=== PATIENT | male | born 1960 ===

== ENCOUNTER 2017-08-12 09:31 | Emergency (ER) | payer OTHER ==
[2017-08-12 09:54] VITALS: BP 107/72
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
== END 2017-08-12 11:08 | disposition home or self-care (01) ==
LOC: UCEAST 09:31
DX: J11.1 Influenza due to unidentified influenza virus with other respiratory manifestations (principal)
CPT/HCPCS: 87502; 99212; G0463

== ENCOUNTER 2019-03-27 08:25 | Day surgery (SDC) | payer OTHER ==
[~2019-03-27 08:25] MED LIST: Buffered Lidocaine 1% SYRIN* 1 ML/SYRINGE INTRADERM ONE
[2019-03-27] MEDS ORDERED: Midazolam* 1 MG/ML 2 ML VIAL (2 MG) ONE ×2 (10:06→10:36)
--- NOTE | 2019-03-27 11:31 | OP ---
DATE OF OPERATION: 03/27/2019 [facility] DATE OF : 1960. SURGEON: Robbie Mares M.D. PREOPERATIVE DIAGNOSIS: Cataract left eye. POSTOPERATIVE DIAGNOSIS: Cataract left eye. OPERATIVE PROCEDURE: Extracapsular cataract extraction with intraocular lens implant left eye. DESCRIPTION OF PROCEDURE: The patient was brought to the operating room after being given 1/2% Alcaine with epinephrine drops in the preoperative area. The eye was prepped and draped in the usual sterile fashion. Sterile drape and eyelid speculum were placed. Again, topical 1/2% Alcaine with epinephrine was given. A paracentesis incision was made at the 3 o'clock position with the No.75 blade. Clear cornea incision 2.2 x 2.2-mm was created at the 6 o'clock position starting at the anterior limbus using the 2.2-mm keratome. The anterior chamber was irrigated with 0.4 mL of 1% non-preservative intracameral lidocaine and filled with DisCoVisc. A capsulorrhexis was completed using the cystotome and the Utrata forceps. Hydrodissection was performed with balanced salt solution. The lens nucleus was removed with the Phacoemulsification handpiece without incident. Cortex was removed with the irrigation-aspiration handpiece. The capsular bag was re-inflated using DisCoVisc and an [id number] 13 implant was inserted with the shooter. All measurements confirmed with ORA. Horizontal reference martinez were made with the patient in a seated position in the preoperative area. The irrigation-aspiration handpiece was used to remove all residual DisCoVisc. The eye was refilled with balanced salt solution and the wound checked and found to be watertight. Topical Maxitrol drops were given. [id number]/[facility] #: [id number] MTDD
[2019-03-27 12:08] VITALS: BP 113/70
[2019-03-27] MEDS ORDERED: acetaZOLAMIDE TAB* 250 MG ONE (13:44)
[2019-03-27] MEDS ORDERED: Phenylephrine OPHTH SOL 2.5%* 2 ML ONE (13:44)
[2019-03-27] MEDS ORDERED: Cyclopentolate 1% OPTH.SOL* 2 ML BTL ONE (13:44)
[2019-03-27] MEDS ORDERED: Povidone Iodine 5% OPTH* 30 ML BTL ONE (13:44)
[2019-03-27] MEDS ORDERED: Ketorolac 0.5% OPHTH (NF) 0.5 % 5 ML BTL ONE (13:44)
[2019-03-27] MEDS ORDERED: Proparacaine 0.5% OPHTH.SOL* 15 ML BTL ONE (13:44)
[2019-03-27] MEDS ORDERED: Neomycin/Polymy/Dex OPTH.SUSP* MAXITROL 0.1% 5 ML ONE (13:44)
[2019-03-27] MEDS ORDERED: Lidocaine 2% w/ EPI 1:200,000* 20 ML SDV VIAL ONE (13:44)
[2019-03-27] MEDS ORDERED: Lidocaine 1% MPF ** 5 ML VIAL ONE (13:44)
== END 2019-03-27 11:38 | disposition home or self-care (01) ==
LOC: OREAST 08:25
PROVIDERS: ATTEND Specialist
DX: H25.812 Combined forms of age-related cataract, left eye (principal); J30.2 Other seasonal allergic rhinitis
CPT/HCPCS: A9270-GY; J2250; V2787

== ENCOUNTER 2019-04-03 07:11 | Day surgery (SDC) | payer OTHER ==
[2019-04-03] MEDS ORDERED: Lidocaine 2% PF * 5 ML VIAL ONE (09:20)
[2019-04-03] MEDS ORDERED: Propofol* 10 MG/ML 20 ML BTL ONE (09:20)
[2019-04-03 10:21] VITALS: BP 104/66
--- NOTE | 2019-04-03 11:41 | OP ---
DATE OF OPERATION: 04/03/2019. DATE OF : 1960. SURGEON: Robbie Mares M.D. PREOPERATIVE DIAGNOSIS: Cataract right eye. POSTOPERATIVE DIAGNOSIS: Cataract right eye. OPERATIVE PROCEDURE: Extracapsular cataract extraction with intraocular lens implant right eye. PROCEDURE: The patient was brought to the operating room after being given 1/2% Alcaine with epineph rine drops in the preoperative area. The eye was prepped and draped in the usual sterile fashion. S terile drape and eyelid speculum were placed. Again, topical 1/2% Alcaine with epinephrine was given . A paracentesis incision was made at the 9 o'clock position with the No.75 blade. Clear cornea inc ision 2.2 x 2.2-mm was created at the 12 o'clock position starting at the anterior limbus using the 2 .2-mm keratome. The anterior chamber was irrigated with 0.4 mL of 1% non-preservative intracameral l idocaine and filled with DisCoVisc. A capsulorrhexis was completed using the cystotome and the Utrat a forceps. Hydrodissection was performed with balanced salt solution. The lens nucleus was removed w ith the Phacoemulsification handpiece without incident. Cortex was removed with the irrigation-aspir ation handpiece. The capsular bag was re-inflated using DisCoVisc and an SN6AT3 12.5 implant was ins erted with the shooter, oriented to the 178 degree meridian. All measurements were based on ORA. Th e irrigation- aspiration handpiece was used to remove all residual DisCoVisc. The eye was refilled w ith balanced salt solution and the wound checked and found to be watertight. Topical Maxitrol drops were given. [id number]/[facility] #: [id number]
[2019-04-03] MEDS ORDERED: Lidocaine 1% MPF ** 5 ML VIAL ONE (14:51)
[2019-04-03] MEDS ORDERED: Phenylephrine OPHTH SOL 2.5%* 2 ML ONE (14:51)
[2019-04-03] MEDS ORDERED: Ketorolac 0.5% OPHTH (NF) 0.5 % 5 ML BTL ONE (14:51)
[2019-04-03] MEDS ORDERED: acetaZOLAMIDE TAB* 250 MG ONE (14:51)
[2019-04-03] MEDS ORDERED: Lidocaine 2% w/ EPI 1:200,000* 20 ML SDV VIAL ONE (14:51)
[2019-04-03] MEDS ORDERED: Proparacaine 0.5% OPHTH.SOL* 15 ML BTL ONE (14:51)
[2019-04-03] MEDS ORDERED: Neomycin/Polymy/Dex OPTH.SUSP* MAXITROL 0.1% 5 ML ONE (14:51)
[2019-04-03] MEDS ORDERED: Povidone Iodine 5% OPTH* 30 ML BTL ONE (14:51)
[2019-04-03] MEDS ORDERED: Cyclopentolate 1% OPTH.SOL* 2 ML BTL ONE (14:51)
== END 2019-04-03 10:26 | disposition home or self-care (01) ==
LOC: OREAST 07:11
PROVIDERS: ATTEND Specialist
DX: H25.811 Combined forms of age-related cataract, right eye (principal); J30.2 Other seasonal allergic rhinitis; Z96.1 Presence of intraocular lens
CPT/HCPCS: A9270-GY; J2704; V2787